=== PATIENT | male | born 1965 | race Caucasian/White ===

== ENCOUNTER 2020-05-03 20:54 | Emergency (ER) | payer SELFPAY ==
[2020-05-03] MEDS ORDERED: Ondansetron 4 MG/2 ML SDV IVPUSH ONE (21:30)
[2020-05-03] MEDS ORDERED: fentaNYL 50 MCG/ML SDV IVPUSH ONE ×2 (21:30→22:02)
--- NOTE | 2020-05-03 21:58 | EDM.PDOC ---
<Eli Sharma R - Last Filed: 05/03/20 21:53> ED HPI GENERAL MEDICAL PROBLEM - General Chief Complaint: Genitourinary Problem Stated Complaint: SICK Time Seen by Provider: 05/03/20 21:03 Source of Information: Reports: Patient History Limitations: Reports: No Limitations - History of Present Illness INITIAL COMMENTS - FREE TEXT/NARRATIVE: Patient presents reporting right groin swelling. The patient states that about 3:00 this afternoon he was having a bowel movement when he noticed an uncomfortable swelling in his right groin he had not had any swelling there before. Now there is a firm large swelling in the groin that extends into the scrotum. He is otherwise healthy without chronic medical problems his bowel movement this afternoon was soft formed brown stool without blood or mucus. He has had no fever, dysuria, nausea, vomiting, constipation or other symptoms. lower abdominal area Pain Score (Numeric/FACES): 2 - Related Data Allergies Allergy/AdvReac Type Severity Reaction Status Date / Time Penicillins Allergy Anaphylactic Verified 05/03/20 21:07 Shock Home Meds: Home Meds Magnesium Citrate [Citrate of Magnesia] 296 ml PO BID #1 bottle 05/03/20 [Rx] Past Medical History HEENT History: Reports: None Cardiovascular History: Reports: None Respiratory History: Reports: None Gastrointestinal History: Reports: None Genitourinary History: Reports: None Musculoskeletal History: Reports: None Neurological History: Reports: None Psychiatric History: Reports: None Endocrine/Metabolic History: Reports: None Insulin Pump Model and Licensed Investment Sales Assistant: None Hematologic History: Reports: None Immunologic History: Reports: None Oncologic (Cancer) History: Reports: None Dermatologic History: Reports: None - Infectious Disease History Infectious Disease History: Reports: None - Past Surgical History Head Surgeries/Procedures: Reports: None Social & Family History - Caffeine Use Caffeine Use: Reports: None - Recreational Drug Use Recreational Drug Use: No ED ROS GENERAL - Review of Systems Review Of Systems: Comprehensive ROS is negative, except as noted in HPI. ED EXAM, GI/ABD - Physical Exam Exam: See Below Exam Limited By: No Limitations General Appearance: Alert, No Apparent Distress Ears: Normal External Exam Nose: Normal Inspection Throat/Mouth: Normal Inspection Head: Atraumatic, Normocephalic Neck: Normal Inspection Respiratory/Chest: No Respiratory Distress, Lungs Clear, Normal Breath Sounds Cardiovascular: Normal Peripheral Pulses, Regular Rate, Rhythm, No Murmur GI/Abdominal Exam: Normal Bowel Sounds, Soft, Non-Tender, No Distention (Male) Exam: Hernia, Other (Large firm tender swelling right groin extending to and egg size mass in the scrotum). No: Scrotal Swelling, Scrotum Tenderness (R), Testicular Mass, Testicular Tenderness (L), Testicular Tenderness (R) Back Exam: Normal Inspection Extremities: Normal Inspection Neurological: Alert, Oriented Psychiatric: Normal Affect, Normal Mood Skin Exam: Warm, Dry, Intact, Normal Color, No Rash Lymphatic: No Adenopathy Course - Re-Assessments/Exams Free Text/Narrative Re-Assessment/Exam: 05/03/20 21:[address] Theodore Turner, general surgery regarding presenting symptoms and exam findings. Same here to examine the patient. Departure - Departure Disposition: Home, Self-Care 01 Clinical Impression: Incarcerated inguinal hernia, unilateral - Discharge Information Prescriptions: Magnesium Citrate [Citrate of Magnesia] 296 ml PO BID #1 bottle Instructions: Inguinal Hernia, Adult, [id number] Referrals: Theodore Turner MD [Physician] - 1 Day Forms: ED Department Discharge Additional Instructions: The need for follow-up, as well as the timing and circumstances, are variable depending upon the specifics of your emergency department visit. If you don't have a primary care physician on staff, we will provide you with a referral. We always advise you to contact your personal physician following an emergency department visit to inform them of the circumstance of the visit and for follow-up with them and/or the need for any referrals to a consulting specialist. The emergency department will also refer you to a specialist when appropriate. This referral assures that you have the opportunity for follow-up care with a specialist. All of these measure are taken in an effort to provide you with optimal care, which includes your follow-up. Under all circumstances we always encourage you to contact your private physic rickie who remains a resource for coordinating your care. When calling for follow- up care, please make the office aware that this follow-up is from your recent emergency room visit. If for any reason you are refused follow-up, please contact the [facility] Emergency Department at and asked to speak to the emergency department charge nurse. If you do not have a primary care doctor, please follow up with the clinics below within 3-5 days. [facility] - Primary Care [address] [place] [address] [facility] [address] [place] [address] Sepsis Event Note (ED) - Evaluation Sepsis Screening Result: No Definite Risk <Jose E Scott - Last Filed: 05/03/20 23:32> Course - Vital Signs Last Recorded V/S: Last Vital Signs Temp 97.5 F 05/03/20 21:05 Pulse 83 05/03/20 23:29 Resp 17 05/03/20 23:29 BP 113/68 05/03/20 23:29 Pulse Ox 97 05/03/20 23:29 - Orders/Labs/Meds Labs: Laboratory Tests 05/03/20 05/03/20 05/03/20 Range/Units 21:42 21:42 22:18 WBC 10.61 (4.0-11.0) K/uL RBC 4.37 L (4.50-5.90) M/uL Hgb 13.4 (13.0-17.0) g/dL Hct 40.2 (38.0-50.0) % MCV 92.0 (80.0-98.0) fL MCH 30.7 (27.0-32.0) pg MCHC 33.3 (31.0-37.0) g/dL RDW Std Deviation 44.8 (28.0-62.0) fl RDW Coeff of Nancy 13 (11.0-15.0) % Plt Count 291 (150-400) K/uL MPV 11.70 (7.40-12.00) fL Neut % (Auto) 85.9 H (48.0-80.0) % Lymph % (Auto) 10.3 L (16.0-40.0) % [place] % (Auto) 3.5 (0.0-15.0) % Eos % (Auto) 0.1 (0.0-7.0) % Baso % (Auto) 0.2 (0.0-1.5) % Neut # (Auto) 9.1 H (1.4-5.7) K/uL Lymph # (Auto) 1.1 (0.6-2.4) K/uL [place] # (Auto) 0.4 (0.0-0.8) K/uL Eos # (Auto) 0.0 (0.0-0.7) K/uL Baso # (Auto) 0.0 (0.0-0.1) K/uL Nucleated RBC % 0.0 /100WBC Nucleated RBCs # 0 K/uL Lactate 0.8 (0.20-2.00) mmol/L Sodium 134 L (136-148) mmol/L Potassium 3.8 (3.5-5.1) mmol/L Chloride 97 L (98-107) mmol/L Carbon Dioxide 23.7 (21.0-32.0) mmol/L BUN 23 H (7.0-18.0) mg/dL Creatinine 1.2 (0.8-1.3) mg/dL Est Cr Clr Drug Dosing 84.11 mL/min Estimated GFR (MDRD) > 60.0 ml/min Glucose 119 H (74-106) mg/dL Calcium 8.7 (8.5-10.1) mg/dL Total Bilirubin 0.6 (0.2-1.0) mg/dL AST 19 (15-37) IU/L ALT 22 (14-63) IU/L Alkaline Phosphatase 111 (46-116) U/L Total Protein 7.3 (6.4-8.2) g/dL Albumin 3.6 (3.4-5.0) g/dL Globulin 3.7 (2.6-4.0) g/dL Albumin/Globulin Ratio 1.0 (0.9-1.6) Meds: Medications Discontinued Medications Generic Name Dose Route Start Last Admin Trade Name Freq PRN Reason Stop Dose Admin Diazepam 2.5 mg 05/03/20 21:41 05/03/20 21:48 Valium IVPUSH 05/03/20 21:42 2.5 mg ONETIME ONE Administration Fentanyl 50 mcg 05/03/20 21:30 05/03/20 21:44 Fentanyl IVPUSH 05/03/20 21:31 50 mcg ONETIME ONE Administration Fentanyl 50 mcg 05/03/20 22:02 05/03/20 22:08 Fentanyl IVPUSH 05/03/20 22:03 50 mcg ONETIME ONE Administration Fentanyl Confirm 05/03/20 22:04 05/03/20 22:08 Fentanyl Administered 05/03/20 22:05 Not Given Dose 50 mcg .ROUTE .STK-MED ONE Iopamidol 100 ml 05/03/20 23:00 05/03/20 23:01 Isovue Multipack-370 (76%) IVPUSH 05/03/20 23:01 100 ml ONETIME STA Administration Ondansetron HCl 4 mg 05/03/20 21:30 05/03/20 21:44 Zofran IVPUSH 05/03/20 21:31 4 mg ONETIME ONE Administration - Re-Assessments/Exams Free Text/Narrative Re-Assessment/Exam: 05/03/[id number] Theodore Turner reduced the hernia successfully with no complication. See his dictation. Patient has no pain at this point. He recommended follow-up with him in the office on for elective surgery, stool softener, pain meds. Departure - Departure Time of Disposition: 23:31 Condition: Good - Discharge Information *PRESCRIPTION DRUG MONITORING PROGRAM REVIEWED*: Not Applicable *COPY OF PRESCRIPTION DRUG MONITORING REPORT IN PATIENT ANJU: Not Applicable Sepsis Event Note (ED) - Focused Exam Vital Signs: Vital Signs Temp Pulse Resp BP Pulse Ox 05/03/20 23:29 83 17 113/68 97 05/03/20 21:05 97.5 F 96 18 116/77 97
[2020-05-03] MEDS ORDERED: fentaNYL 50 MCG/ML SDV ONE (22:04)
[2020-05-03 22:26] LABS: BLOOD UREA NITROGEN,BUN 23 mg/dL (7.0-18.0); CARBON DIOXIDE,CO2 23.7 mmol/L (21.0-32.0); CHLORIDE,CL 97 mmol/L (98-107); GLUCOSE RANDOM 119 mg/dL (74-106); POTASSIUM,K 3.8 mmol/L (3.5-5.1); SODIUM,NA 134 mmol/L (136-148)
[2020-05-03] MEDS ORDERED: Iopamidol 755 MG/ML 500 ML Multipack Bottle IVPUSH STA (23:00)
--- NOTE | 2020-05-03 23:10 | PCM.SN.2 ---
- Free Text/Narrative Note: Pt seen, chart reviewed; R ing hernia, reduced; and pt has no pain/n/v; pt can go home, avoid lifting > 20 lb; no laughing/coughing/raising voice; call in morning to see me this week, likely coming to discuss possibe surgery; [id number]
--- NOTE | 2020-05-03 23:28 | CT ---
Indication: Right inguinal hernia Technique: Contrast enhanced axial CT imaging through the abdomen and pelvis. 100 mL Isovue 370 contrast agent was administered intravenously. Sagittal and coronal reconstructions are provided. Comparison: None Findings: There is a fat containing right-sided direct inguinal hernia containing, measuring up to 4.5 x 3.8 cm in the axial plane and 10 cm craniocaudally. Trace free fluid is also noted within the hernia sac. The left inguinal canal is unremarkable. No abnormalities are demonstrated relating to the liver, spleen, pancreas, adrenal glands, or kidneys. There is no abdominal lymphadenopathy. A 1.3 cm peripherally hyperdense stone is noted in the gallbladder. There is no appreciable gallbladder wall thickening or pericholecystic edema. The portal vein , hepatic veins, IVC, and renal veins are patent. There is normal caliber of the abdominal aorta The stomach and duodenum are unremarkable. There is no small bowel wall thickening or abnormal distention. The appendix is noninflamed. Diverticulosis is noted in the descending and sigmoid colon. There is no colonic wall thickening, mesenteric edema, or intraperitoneal free fluid. The prostate gland is enlarged, measuring 6 x 5 cm in axial cross-section and 5 cm craniocaudally. The urinary bladder and seminal vesicles are unremarkable. There is severe degenerative disc height loss at L5-S1. The osseous structures are otherwise unremarkable. The included lung bases are clear. Impression: 1. Fat containing right direct inguinal hernia. No evidence of bowel herniation. 2. Cholelithiasis without findings to suggest cholecystitis. 3. Colonic diverticulosis without evidence of diverticulitis. 4. Prostatomegaly. Please note that all CT scans at this facility use dose modulation, iterative reconstruction, and/or weight-based dosing when appropriate to reduce radiation dose to as low as reasonably achievable. Dictated by Debora Miranda MD @ May 03 2020 11:10PM Signed by Dr. Debora Miranda @ May 03 2020 11:27PM
--- NOTE | 2020-05-04 07:46 | CONS ---
DATE OF CONSULTATION: 05/03/2020 DATE OF : 1965 PRIMARY CARE PHYSICIAN: None PCP REASON FOR CONSULTATION: Consult was called, the patient was seen shortly after. Consulting question is incarcerated right inguinal hernia. Consult is from Eli Sharma and Dr. Kaur. HISTORY OF PRESENT ILLNESS: The patient is a 55-year-old appropriately built gentleman, complained to be constipated, around 6 hours prior to the emergency room visit had difficult bowel movement, and after that the right inguinal area is bulging. Pain is about 2 to 3 on a pain scale. Denied nausea, denied trauma, and in fact, the patient denied pain only if being examined. The patient denied prior episode. PAST MEDICAL HISTORY: Significant for no diabetes, [place], CVA or hypertension. PAST SURGICAL HISTORY: No abdominal surgery. ALLERGIES: Please refer to nursing notes for details. MEDICATION: Please refer to nursing notes for details. PHYSICAL EXAMINATION: GENERAL: Very pleasant young gentleman, in no acute distress. In fact, patient kind of comfortable. HEENT: Normocephalic and atraumatic. Sclerae anicteric. LUNGS: Clear to auscultation. HEART: Regular rate and rhythm. ABDOMEN: Soft, nondistended. No pulsating tender midline abdominal structure. No surgical scar. GENITOURINARY: Quite large bulging on the right inguinal area into the scrotum. Testes bilaterally descended. IMPRESSION: Incarcerated inguinal hernia and would benefit from timely reduction. Addendum: With some pain medication and some Valium, it took 12 minutes, the incarcerated hernia was returned and the patient immediately remarked "I have no pain now doctor." Reduced incarcerated right inguinal hernia. The patient would benefit from having a little bit of p.o. diet, maybe some snack cracker and some pain medication and avoid lifting heavy weights, avoid coughing, avoid laughing, avoid raising voice and try to call to make appointment to see me this week, probably would be coming and I recommend the patient to seek emergency room help if incarceration recur. The patient voiced understanding. Plan has been discussed with the ER provider, Dr Kaur. HUY / HAMMAD /[id number]
== END 2020-05-03 23:33 | disposition home or self-care (01) ==
LOC: MW.ED 20:54
DX: K40.30 Unilateral inguinal hernia, with obstruction, without gangrene, not specified as recurrent (principal); Z88.0 Allergy status to penicillin
CPT/HCPCS: 36415; 74177; 80053; 83605; 85025; 96374; 96375; 99284; J2405; J3010; J3360; Q9967; 99283

== ENCOUNTER 2020-05-13 06:33 | Day surgery (SDC) | payer OTHER ==
[~2020-05-13 06:33] MED LIST: Lactated Ringers 1,000 ML IV SCH
[2020-05-13] MEDS ORDERED: fentaNYL 250 MCG/5 ML SDV ONE (06:51)
[2020-05-13] MEDS ORDERED: Midazolam 1 MG/ML 2 ML SDV ONE (06:51)
[2020-05-13] MEDS ORDERED: Propofol 200 MG/20 ML SDV ONE (06:51)
[2020-05-13] MEDS ORDERED: Ondansetron 4 MG/2 ML SDV ONE (06:58)
[2020-05-13] MEDS ORDERED: Dexamethasone 4 MG/ML 5 ML MDV ONE (06:58)
--- NOTE | 2020-05-13 07:05 | PCM.PREANE ---
Preanesthetic Assessment - Anesthesia/Transfusion/Family Hx Anesthesia History: Prior Anesthesia Without Reaction Family History of Anesthesia Reaction: No Transfusion History: No Prior Transfusion(s) Intubation History: Unknown - Review of Systems General: No Symptoms Pulmonary: No Symptoms Cardiovascular: No Symptoms Gastrointestinal: No Symptoms Neurological: No Symptoms Other: Reports: None - Physical Assessment Vital Signs: Last Vital Signs Temp 35.5 C L 05/13/20 06:47 Pulse 87 05/13/20 06:47 Resp 16 05/13/20 06:47 BP 106/65 05/13/20 06:47 Pulse Ox 96 05/13/20 06:47 Height: 6 ft 3 in Weight: 103.873 kg ASA Class: 2 Mental Status: Alert & Oriented x3 Airway Class: Mallampati = 3 Dentition: Reports: Normal Dentition Thyro-Mental Finger Breadths: 2 Mouth Opening Finger Breadths: 2 ROM/Head Extension: Limited/Partial Lungs: Clear to Auscultation, Normal Respiratory Effort Cardiovascular: Regular Rate, Regular Rhythm - Allergies Allergies/Adverse Reactions: Allergies Allergy/AdvReac Type Severity Reaction Status Date / Time Penicillins Allergy Anaphylactic Verified 05/13/20 06:52 Shock - Blood Blood Available: No - Anesthesia Plan Pre-Op Medication Ordered: None - Acknowledgements Anesthesia Type Planned: General Anesthesia Pt an Appropriate Candidate for the Planned Anesthesia: Yes Alternatives and Risks of Anesthesia Discussed w Pt/Guardian: Yes Pt/Guardian Understands and Agrees with Anesthesia Plan: Yes PreAnesthesia Questionnaire HEENT History: Reports: Other (See Below) Other HEENT History: wears glasses Cardiovascular History: Reports: None Respiratory History: Reports: None Gastrointestinal History: Reports: Cholelithiasis (10 mm stone) Genitourinary History: Reports: None Musculoskeletal History: Reports: Fracture Other Musculoskeletal History: fx nose Neurological History: Reports: None Psychiatric History: Reports: None Endocrine/Metabolic History: Reports: None Hematologic History: Reports: None Immunologic History: Reports: None Oncologic (Cancer) History: Reports: None Dermatologic History: Reports: None - Infectious Disease History Infectious Disease History: Reports: None - Past Surgical History Head Surgeries/Procedures: Reports: None HEENT Surgical History: Reports: Naso-Sinus Surgery Other HEENT Surgeries/Procedures: repair of fx nose Cardiovascular Surgical History: Reports: None Respiratory Surgical History: Reports: None GI Surgical History: Reports: None Male Surgical History: Reports: None Endocrine Surgical History: Reports: None Neurological Surgical History: Reports: None Musculoskeletal Surgical History: Reports: None Oncologic Surgical History: Reports: None Dermatological Surgical History: Reports: None - SUBSTANCE USE Tobacco Use Status *Q: Former Tobacco User (long time ago) Tobacco Use Within Last Twelve Months: No - HOME MEDS Home Medications: Home Meds . [No Known Home Meds] 05/10/20 [History] - CURRENT (IN HOUSE) MEDS Current Meds: Current Medications Lactated Ringer's (Ringers, Lactated) 1,000 mls @ 125 mls/hr IV ASDIRECTED [facility] Last Admin: 05/13/20 06:53 Dose: 125 mls/hr Documented by: Discontinued Medications Dexamethasone (Dexamethasone) Confirm Administered Dose 20 mg .ROUTE .STK-MED ONE Stop: 05/13/20 06:59 Fentanyl (Sublimaze) Confirm Administered Dose 250 mcg .ROUTE .STK-MED ONE Stop: 05/13/20 06:52 Vancomycin HCl 1.5 gm/ Premix 300 mls @ 200 mls/hr IV ONETIME ONE Stop: 05/13/20 13:02 Vancomycin HCl 1.5 gm/ Premix 300 mls @ 200 mls/hr IV ONETIME ONE Stop: 05/13/20 06:29 Last Admin: 05/13/20 06:55 Dose: 200 mls/hr Documented by: Lidocaine HCl (Xylocaine-Mpf 1%) Confirm Administered Dose 5 ml .ROUTE .STK-MED ONE Stop: 05/13/20 06:58 Midazolam HCl (Versed 1 Mg/Ml) Confirm Administered Dose 2 mg .ROUTE .STK-MED ONE Stop: 05/13/20 06:52 Ondansetron HCl (Zofran) Confirm Administered Dose 4 mg .ROUTE .STK-MED ONE Stop: 05/13/20 06:59 Propofol (Diprivan 20 Ml) Confirm Administered Dose 200 mg .ROUTE .STK-MED ONE Stop: 05/13/20 06:52
[2020-05-13] MEDS ORDERED: Succinylcholine/Sod PF 100 MG/5 ML SYRINGE IV ONE ×2 (07:17→07:19)
[2020-05-13] MEDS ORDERED: Rocuronium Bromide 50 MG/5 ML Syringe ONE (07:17)
[2020-05-13] MEDS ORDERED: Glycopyrrolate 0.2 MG/ML SDV ONE ×2 (07:18→08:00)
[2020-05-13] MEDS ORDERED: Bupivacaine 25%/EPINEPHrine/PF 30 ML ONE (07:19)
[2020-05-13] MEDS ORDERED: Octyl 2-Cyanoacrylate 1 Tube ONE (07:19)
[2020-05-13] MEDS ORDERED: fentaNYL 100 MCG/2 ML SDV IVPUSH PRN (08:24)
[2020-05-13] MEDS ORDERED: HYDROmorphone 2 MG Tab PO PRN (10:19)
--- NOTE | 2020-05-13 10:30 | PCM.OPNOTE ---
- General Post-Op/Procedure Note Date of Surgery/Procedure: 05/13/20 Operative Procedure(s): R ing hernia rep w mesh and plug Findings: a large direct hernia and a large cord lipoma; repair w large plug and mesh; [id number] Pre Op Diagnosis: r ing hernia Post-Op Diagnosis: Same Anesthesia Technique: General ET Tube Primary Surgeon: Theodore Turner Pathology: cord lipoma Complications: None Condition: Good Free Text/Narrative:: Intake & Output 05/12/20 05/13/20 05/13/20 22:59 06:59 14:59 Intake Total 1600 Balance 1600
--- NOTE | 2020-05-13 10:45 | PCM.POSTAN ---
POST ANESTHESIA ASSESSMENT - MENTAL STATUS Mental Status: Alert, Oriented - VITAL SIGNS Vital Signs: Last Vital Signs Temp 36.2 C 05/13/20 10:15 Pulse 67 05/13/20 10:30 Resp 16 05/13/20 10:30 BP 112/62 05/13/20 10:30 Pulse Ox 95 05/13/20 10:30 - RESPIRATORY Respiratory Status: Respiratory Rate WNL, Airway Patent, O2 Saturation Stable - CARDIOVASCULAR CV Status: Pulse Rate WNL, Blood Pressure Stable - GASTROINTESTINAL GI Status: No Symptoms - PAIN Pain Score: 0 - POST OP HYDRATION Hydration Status: Adequate & Stable - OBSERVATIONS Free Text/Narrative:: No anesthesia problems
--- NOTE | 2020-05-13 11:49 | PCM48HPAN ---
Post Anesthesia Note - EVALUATION WITHIN 48HRS OF ANESTHETIC Vital Signs in Normal Range: Yes Patient Participated in Evaluation: Yes Respiratory Function Stable: Yes Airway Patent: Yes Cardiovascular Function Stable: Yes Hydration Status Stable: Yes Pain Control Satisfactory: Yes Nausea and Vomiting Control Satisfactory: Yes Mental Status Recovered: Yes Vital Signs: Last Vital Signs Temp 36.2 C 05/13/20 10:15 Pulse 67 05/13/20 11:00 Resp 16 05/13/20 11:00 BP 108/62 05/13/20 11:00 Pulse Ox 95 05/13/20 11:00 - COMMENTS/OBSERVATIONS Free Text/Narrative:: No anesthesia problems
--- NOTE | 2020-05-13 11:51 | OR ---
SURGEON: Theodore Turner MD DATE OF PROCEDURE: 05/13/2020 PREOPERATIVE DIAGNOSIS: Right inguinal hernia. POSTOPERATIVE DIAGNOSIS: Right inguinal hernia. PROCEDURE PERFORMED: Repair with Marlex mesh and plug. PRIMARY SURGEON: Theodore Turner MD. DESCRIPTION OF PROCEDURE: The patient was taken to the operating room and placed in the supine position. Upon induction of general endotracheal anesthesia, the patient's groin and inguinal area were prepped and draped in a sterile fashion. The scrotum was placed on top of the drape in case it needed to be maneuvered. An IV antibiotic was given prophylactically and after assessment of appropriate landmark, a transverse incision was made which was right in the middle of the external oblique and the internal oblique and the transverse incision was then carefully taken down past the Federico fascia and exposed the external oblique where the cord is. The external ring was also identified and using a 15 blade, a small laura was made right on top of the cord and then using a Metzenbaum scissors, carefully opened up the fiber along its direction all the way to the external ring. The spermatic cord was then carefully lifted up from the inguinal canal. A Bartow drain was then used to hold on to manipulate the cord and carefully dissect out from the inguinal floor. The cremasteric muscle was then opened up. A glistening whitish hernia sac in the medial anterior aspect of the cord was located. This was carefully dissected down all the way to the internal ring, then using 2-0 Silk, the hernia sac was then tied off, transfixed and amputated. The hernia sac was then sent for pathology. Upon transfixing of the hernia sac and amputation of the hernia sac, it withdrew back to the peritoneum by itself, and a custom made plug was inserted followed with mesh. Custom fit mesh was then used to reinforce the inguinal floor. The mesh was then anchored down by using 2-0 Prolene stitches to the periosteum of the pubic symphysis, then running down to the lateral aspect of the rectus muscle. The lateral part of the mesh was then anchored to the Edy ligament, again using 2- 0 Prolene. The last few stitches also anchored the plug to make sure the plug is not migrating. There was one stitch placed at the end of the two tails. Where the cord exits out, a stitch was placed in the two tails to repair the internal ring. Upon conclusion of surgery, I used a finger to make sure the ring is not too tight and not too loose, followed with some irrigation. The external oblique was then repaired by use of 2-0 Vicryl and the recreation external ring was also tested, not too tight, not too loose, followed with 2-0 Vicryl and closed the Federico fascia and the skin stapled to approximate the skin, followed by appropriate dressing. The patient was then awakened, extubated and transferred to recovery room in a hemodynamically stable condition. The patient tolerated the procedure well. There were no intraoperative complications. Dr. Turner was present through the whole procedure. Just before surgery, a timeout was called. The patient was identified and procedure identified and procedure started. As always, thank you for the kind referral. FINDING: A large direct hernia and a large cord lipoma. The cord lipoma was excised, and the hernia defect was repaired with a large plug and mesh. HUY / HAMMAD /[id number]
== END 2020-05-13 12:23 | disposition home or self-care (01) ==
LOC: MW.SDS 06:33
PROVIDERS: ATTEND Surgery
DX: K40.90 Unilateral inguinal hernia, without obstruction or gangrene, not specified as recurrent (principal); D17.6 Benign lipomatous neoplasm of spermatic cord; K80.20 Calculus of gallbladder without cholecystitis without obstruction; K57.90 Diverticulosis of intestine, part unspecified, without perforation or abscess without bleeding; Z88.0 Allergy status to penicillin; Z98.890 Other specified postprocedural states; Z87.891 Personal history of nicotine dependence
CPT/HCPCS: 49505; C1781; J0330; J1100; J2250; J2405; J2704; J3010; J3370; J3490; J7120; 00830; 88302; A9270-GY